=== PATIENT | male | born 1950 | race Two or more races ===

== ENCOUNTER 2023-01-15 08:01 | Emergency (ER) | payer OTHER ==
[~2023-01-15] VITALS: Ht 180.3 cm; Wt 86.0 kg
[2023-01-15 09:05] LABS: Basophils # (auto) 0 10 ^3/uL (0-0.2); Basophils % (auto) 0.6 % (0.0-2.0); Eosinophils # (auto) 0 10 ^3/uL (0-0.8); Eosinophils % (auto) 1.6 % (0.0-7.0); Hematocrit 38.7 % (41.0-53.0); Hemoglobin 12.7 g/dL (13.5-17.5); Lymphocytes # (auto) 1.2 10 ^3/uL (0.4-5.4); Lymphocytes % (auto) 52.6 % (10.0-50.0); Mean Corpuscular Hemoglobin 30.3 pg (28.0-32.0); Mean Corpuscular Hgb Conc. 32.8 g/dL (32.0-36.0); Mean Corpuscular Volume 92.4 fL (80.0-100.0); Monocytes # (auto) 0 10 ^3/uL (0-1.3); Monocytes % (auto) 1.5 % (0.0-12.0); Neutrophils % (auto) 43.7 % (37.0-80.0); Nucleated Red Blood Cells % 0.5 %; Red Blood Cells 4.19 10^6/uL (4.5-5.90); Red Cell Distribution Width 14.3 % (11.8-14.3); White Blood Cell 2.3 10^3/uL (4.4-10.8)
[2023-01-15 09:32] LABS: BUN/Creatinine Ratio 15.3 (10.0-20.0); Calcium 8.8 mg/dL (8.5-10.1); Potassium 4.8 mmol/L (3.5-5.1)
[2023-01-15 09:39] VITALS: BP 132/70
[2023-01-15] MEDS ORDERED: HYDROcodone-ACET 10/325MG TAB PO ONE (09:45)
[2023-01-15] MEDS ORDERED: IBU600T PO (11:08)
== END 2023-01-15 11:29 | disposition home or self-care (01) ==
LOC: EDBD 08:01 → ER 08:01
DX: S16.1XXA Strain of muscle, fascia and tendon at neck level, initial encounter (principal); I11.0 Hypertensive heart disease with heart failure; I50.89 Other heart failure; Z88.0 Allergy status to penicillin; V49.88XA Car occupant (driver) (passenger) injured in other specified transport accidents, initial encounter; Y93.89 Activity, other specified; Y92.89 Other specified places as the place of occurrence of the external cause; Y99.8 Other external cause status
CPT/HCPCS: 36415; 70450; 72125; 80048; 85025